=== PATIENT | female | born 1955 | race Caucasian/White ===

== ENCOUNTER 2017-11-28 13:00 | Day surgery (SDC) | payer OTHER ==
[~2017-11-28] VITALS: Ht 157.5 cm; Wt 72.8 kg
[~2017-11-28 13:00] MED LIST: AMLO5
[2017-11-28] MEDS ORDERED: PRAV20 (13:45)
== END 2017-11-28 15:20 | disposition home or self-care (01) ==
LOC: ORSCSDS 13:00
PROVIDERS: Internal Medicine Gastroenterology
PROC: 0DBK8ZX Excision of Ascending Colon, Via Natural or Artificial Opening Endoscopic, Diagnostic (ICD-10-PCS; principal; 2017-11-28 14:30)
DX: Z12.11 Encounter for screening for malignant neoplasm of colon (principal); K63.5 Polyp of colon; K64.4 Residual hemorrhoidal skin tags; K64.8 Other hemorrhoids; K57.30 Diverticulosis of large intestine without perforation or abscess without bleeding; Z86.010 Personal history of colon polyps; I12.9 Hypertensive chronic kidney disease with stage 1 through stage 4 chronic kidney disease, or unspecified chronic kidney disease; E78.5 Hyperlipidemia, unspecified; F17.210 Nicotine dependence, cigarettes, uncomplicated; Z79.899 Other long term (current) drug therapy
CPT/HCPCS: 88305; J2405; J7120

== ENCOUNTER 2018-01-13 18:27 | Emergency (ER) | payer OTHER ==
[~2018-01-13] VITALS: Ht 160 cm; Wt 65.8 kg
[~2018-01-13 18:27] MED LIST changes: +PRAV20
== END 2018-01-13 20:00 | disposition home or self-care (01) ==
LOC: ER 18:27
DX: J06.9 Acute upper respiratory infection, unspecified (principal); Z79.899 Other long term (current) drug therapy; I10 Essential (primary) hypertension; F17.200 Nicotine dependence, unspecified, uncomplicated
CPT/HCPCS: 87081; 87430; 99283

== ENCOUNTER → 2018-10-31 | Outpatient (CLI) | payer MEDICARE ==
[2018-10-31 09:05] LABS: BASOPHILS ABSOLUTE AUTO 0.06 K/mm3 (0.00-0.23); BASOPHILS PERCENT AUTO 1 % (0-2); EOSINOPHILS ABSOLUTE AUTO 0.14 K/mm3 (0.00-0.68); EOSINOPHILS PERCENT AUTO 1 % (0-6); IMMATURE GRAN ABSOLUTE AUTO 0.02 K/mm3 (0.00-0.10); IMMATURE GRAN PERCENT AUTO 0 % (0-1); LYMPHOCYTES ABSOLUTE AUTO 2.87 K/mm3 (0.84-5.20); LYMPHOCYTES PERCENT AUTO 26 % (21-46); MONOCYTES ABSOLUTE AUTO 0.74 K/mm3 (0.16-1.47); MONOCYTES PERCENT AUTO 7 % (4-13); Mean Corpuscular HGB 32.5 pg (26.0-34.0); Mean Corpuscular Volume 93 fL (80-100); Mean Platelet Volume 9.9 fL (9.1-12.4); NEUTROPHILS ABSOLUTE AUTO 7.43 K/mm3 (1.96-9.15); NEUTROPHILS PERCENT AUTO 66 % (41-73); Platelet Count 234 K/mm3 (150-400); RDW Coefficient Variation 12.7 % (11.7-14.2); RDW Standard Deviation 43.2 fL (35.1-46.3); Red Blood Cell Count 4.31 M/mm3 (3.80-5.20); White Blood Cell Count 11.26 K/mm3 (4.00-11.30)
== END | disposition home or self-care (01) ==
LOC: LAB EV 08:55 → LAB SHORT 08:55
PROVIDERS: General Practice
DX: M79.672 Pain in left foot (principal)
CPT/HCPCS: 84550; 85025; 85651

== ENCOUNTER → 2020-07-30 | Outpatient (CLI) | payer MEDICARE | END | disposition home or self-care (01) | LOC: LAB EV 18:26 → LAB SHORT 18:26 | DX: N39.0 Urinary tract infection, site not specified (principal) | CPT/HCPCS: 87077; 87086; 87186 ==

== ENCOUNTER → 2021-07-14 | Outpatient (CLI) | payer MEDICARE | END | disposition home or self-care (01) | LOC: LAB SHORT 09:58 | DX: N39.0 Urinary tract infection, site not specified (principal) | CPT/HCPCS: 87077; 87086; 87186 ==

== ENCOUNTER → 2022-06-05 | Outpatient (CLI) | payer OTHER ==
[~2022-06-05] MED LIST changes: +AMLODIPINE BESYL5 MG PO; +ASPI81CH PO; +CEPH500 PO; +LOSA50 PO; +PANT40 PO; +ROSUVASTATIN CA40 MG PO; +VISBIOME 112.51 EACH PO
== END | disposition home or self-care (01) ==
LOC: LAB SHORT 10:33 → LAB 10:33
DX: N39.0 Urinary tract infection, site not specified (principal)
CPT/HCPCS: 87077; 87086; 87186

== ENCOUNTER 2022-06-07 04:47 | Observation (INO) | payer OTHER ==
[~2022-06-07] VITALS: Ht 157.5 cm; Wt 68.0 kg
[~2022-06-07 04:47] MED LIST changes: -AMLODIPINE BESYL5 MG PO; -ASPI81CH PO; -CEPH500 PO; -LOSA50 PO; -PANT40 PO; -ROSUVASTATIN CA40 MG PO; -VISBIOME 112.51 EACH PO
[2022-06-07 05:13] LABS: BASOPHILS ABSOLUTE AUTO 0.13 K/mm3 (0.00-0.23); BASOPHILS PERCENT AUTO 1 % (0-2); EOSINOPHILS ABSOLUTE AUTO 0.05 K/mm3 (0.00-0.68); EOSINOPHILS PERCENT AUTO 0 % (0-6); Hematocrit 49.1 % (33.0-51.0); Hemoglobin 16.4 g/dL (11.5-16.0); IMMATURE GRAN ABSOLUTE AUTO 0.19 K/mm3 (0.00-0.10); IMMATURE GRAN PERCENT AUTO 1 % (0-1); LYMPHOCYTES ABSOLUTE AUTO 0.74 K/mm3 (0.84-5.20); LYMPHOCYTES PERCENT AUTO 3 % (21-46); MONOCYTES ABSOLUTE AUTO 1.86 K/mm3 (0.16-1.47); MONOCYTES PERCENT AUTO 8 % (4-13); Mean Corpuscular HGB 31.6 pg (26.0-34.0); Mean Corpuscular HGB Conc 33.4 g/dL (31.5-36.5); Mean Corpuscular Volume 95 fL (80-100); Mean Platelet Volume 10.3 fL (9.1-12.4); NEUTROPHILS ABSOLUTE AUTO 20.58 K/mm3 (1.96-9.15); NEUTROPHILS PERCENT AUTO 87 % (41-73); Platelet Count 270 K/mm3 (150-400); RDW Coefficient Variation 12.5 % (11.7-14.2); RDW Standard Deviation 43.8 fL (35.1-46.3); Red Blood Cell Count 5.19 M/mm3 (3.80-5.20); White Blood Cell Count 23.55 K/mm3 (4.00-11.30)
[2022-06-07 05:31] LABS: International Normalized Ratio 0.99; Prothrombin Time Results 10.4 Sec (9.7-11.5)
[2022-06-07 05:40] LABS: Albumin, Blood 4.2 g/dL (3.4-5.0); Bilirubin, Total 0.5 mg/dL (0.1-1.0); Bun/Creatinine Ratio 17.2 (12.0-20.0); Calcium, Blood 10.5 mg/dL (8.5-10.1); Creatinine, Blood 1.98 mg/dL (0.40-1.00); Globulin, Blood 4.3 g/dL (2.2-4.0); Total Protein, Blood 8.5 g/dL (6.4-8.2)
[2022-06-07] MEDS ORDERED: ROSUVASTATIN CA40 MG PO (06:51)
[2022-06-07] MEDS ORDERED: CEPH500 PO (06:51)
[2022-06-07] MEDS ORDERED: ASPI81CH PO (06:51)
[2022-06-07] MEDS ORDERED: LOSA50 PO (06:51)
[2022-06-07] MEDS ORDERED: AMLODIPINE BESYL5 MG PO (06:51)
[2022-06-07 09:29] LABS: Source, Urine Clean Catch
[2022-06-07 09:40] LABS: Appearance, Urine Clear (Clear); Bilirubin, Urine Neg (Neg); Blood, Urine 4+ (Neg); Color, Urine Yellow (P-Yellow); Glucose Qualitative, Urine Neg (Neg); Ketones, Urine Neg (Neg); Leukocyte Esterase, Urine 1+ (Neg); Nitrite, Urine Neg (Neg); Protein, Urine 2+ (Neg); Urobilinogen, Urine NORM (Normal)
[2022-06-07 10:33] LABS: Bacteria Rare /hpf; Squamous Epithelial Cells Few /hpf (Few)
--- NOTE | 2022-06-07 18:27 | NUR ---
SHIFT SUMMARY PT CAME TO THE FLOOR AT 1700. SHE IS NO LONGER NASUEAUS, IN PAIN OR HAVING STOMACH CRAMPS, SHE IS VERY TIRED AND FEELS VERY DRY. SHE WAS ABLE TO PRODUCE A STOOL SAMPLE. SHE IS SLEEPING AND IS ASKING TO NOT BE DISTURBED. BED IN LOWEST POSITION, CALL LIGHT IN REACH. SHE IS INDEPENDENT UP TO THE BATHROOM
[2022-06-07 20:08] LABS: Anion Gap 7 mmol/L (6-16); Blood Urea Nitrogen 26 mg/dL (8-24); Bun/Creatinine Ratio 20.8 (12.0-20.0); CO2, Blood 24 mmol/L (21-32); Chloride, Blood 109 mmol/L (98-108); Creatinine, Blood 1.25 mg/dL (0.40-1.00); Glomerular Filtration Rate 47 (60-); Glucose, Blood 95 mg/dL (70-99); Phosphorus, Blood 3.3 mg/dL (2.5-4.9); Potassium, Blood 4.1 mmol/L (3.5-5.5); Sodium, Blood 140 mmol/L (136-145)
[2022-06-07 20:15] LABS: Calcium, Blood 8.4 mg/dL (8.5-10.1)
[2022-06-07 22:35] LABS: Stool Occult Blood Guaiac 1 Pos (Neg)
[2022-06-07 23:50] LABS: Adenovirus F 40/41 Not Detected (NOT DETECT); Astrovirus Not Detected (NOT DETECT); Campylobacter Sp Not Detected (NOT DETECT); Cryptosporidium Not Detected (NOT DETECT); Cyclospora Cayetanensis Not Detected (NOT DETECT); E. Coli O157 Not Detected (NOT DETECT); Entamoeba Histolytica Not Detected (NOT DETECT); Enteroaggregative E. coli-EAEC Not Detected (NOT DETECT); Enteropathogenic E. coli-EPEC Not Detected (NOT DETECT); Enterotoxigenic E. coli-ETEC Not Detected (NOT DETECT); Giardia Lamblia Not Detected (NOT DETECT); Norovirus GI/GII Not Detected (NOT DETECT); Plesiomonas Shigelloides Not Detected (NOT DETECT); Rotavirus A Not Detected (NOT DETECT); Salmonella Sp Not Detected (NOT DETECT); Sapovirus Not Detected (NOT DETECT); Shiga Toxin-prod E. coli-STEC Not Detected (NOT DETECT); Shigella/Enteroin E. coli-EIEC Not Detected (NOT DETECT); Vibrio Cholerae Not Detected (NOT DETECT); Vibrio Sp Not Detected (NOT DETECT); Yersinia Enterocolitica Not Detected (NOT DETECT)
[2022-06-08 05:07] LABS: BASOPHILS ABSOLUTE AUTO 0.02 K/mm3 (0.00-0.23); BASOPHILS PERCENT AUTO 0 % (0-2); EOSINOPHILS PERCENT AUTO 1 % (0-6); Hematocrit 35.7 % (33.0-51.0); Hemoglobin 11.8 g/dL (11.5-16.0); IMMATURE GRAN ABSOLUTE AUTO 0.05 K/mm3 (0.00-0.10); IMMATURE GRAN PERCENT AUTO 0 % (0-1); LYMPHOCYTES PERCENT AUTO 21 % (21-46); MONOCYTES ABSOLUTE AUTO 0.85 K/mm3 (0.16-1.47); MONOCYTES PERCENT AUTO 7 % (4-13); Mean Corpuscular HGB 31.3 pg (26.0-34.0); Mean Corpuscular HGB Conc 33.1 g/dL (31.5-36.5); Mean Corpuscular Volume 95 fL (80-100); NEUTROPHILS ABSOLUTE AUTO 8.74 K/mm3 (1.96-9.15); NEUTROPHILS PERCENT AUTO 71 % (41-73); Platelet Count 181 K/mm3 (150-400); RDW Coefficient Variation 12.8 % (11.7-14.2); RDW Standard Deviation 44.5 fL (35.1-46.3); Red Blood Cell Count 3.77 M/mm3 (3.80-5.20); White Blood Cell Count 12.36 K/mm3 (4.00-11.30)
[2022-06-08 05:35] LABS: Albumin, Blood 2.8 g/dL (3.4-5.0); Anion Gap 7 mmol/L (6-16); Blood Urea Nitrogen 23 mg/dL (8-24); Bun/Creatinine Ratio 18.9 (12.0-20.0); CO2, Blood 24 mmol/L (21-32); Chloride, Blood 111 mmol/L (98-108); Creatinine, Blood 1.22 mg/dL (0.40-1.00); Glomerular Filtration Rate 48 (60-); Glucose, Blood 99 mg/dL (70-99); Phosphorus, Blood 2.7 mg/dL (2.5-4.9); Potassium, Blood 3.7 mmol/L (3.5-5.5); Sodium, Blood 142 mmol/L (136-145)
--- NOTE | 2022-06-08 06:09 | NUR ---
SHIFT SUMMARY PATIENT ALERT AND ORIENTED. HAD NO COMPLAINTS OF PAIN OR SHORTNESS OF BREATH. NO ACUTE ISSUES NOTED OVERNIGHT. CALL LIGHT WITHIN REACH. REPORT GIVEN TO ONCOMING RN.
[2022-06-08] MEDS ORDERED: PANT40 PO (12:21)
[2022-06-08] MEDS ORDERED: VISBIOME 112.51 EACH PO (12:21)
--- NOTE | 2022-06-08 13:56 | NUR ---
PT DISCHARGED 1240 WITH ALL PAPERWORK REVIEWED AND EDUCATIONAL MATERIAL SENT. PT COLLECTED BELONGINGS AND WAS ESCORTED OUT VIA WHEEL CHAIR BY AID. PT HAS DENIED ANY PAIN TODAY AND WAS INDEPENDENT IN ROOM. TOLERATED REGULAR DIET WELL NO DISTRESS NOTED.
== END 2022-06-08 13:41 | disposition home or self-care (01) ==
LOC: ER 04:47 → MEDS 04:48 → ER 10:15 → ERHOLD 10:15 → MEDS 16:59
PROVIDERS: Emergency Medicine; ADMIT Family Medicine
DX: K52.9 Noninfective gastroenteritis and colitis, unspecified (principal); R11.2 Nausea with vomiting, unspecified; E87.2 Acidosis; E73.9 Lactose intolerance, unspecified; N17.9 Acute kidney failure, unspecified; I10 Essential (primary) hypertension; E78.5 Hyperlipidemia, unspecified; F17.210 Nicotine dependence, cigarettes, uncomplicated; Z66 Do not resuscitate; Z88.2 Allergy status to sulfonamides; Z79.82 Long term (current) use of aspirin; Z79.899 Other long term (current) drug therapy
CPT/HCPCS: 36415; 74177; 80053; 80069; 81001; 82272; 83605; 83735; 84484; 85018; 85025; 85610; 85730; 86850; 86900; 86901; 87015; 87045; 87046; 87086; 87205; 87507; 87899; 93005; 93010; 96374-59; 96375; 99285-25; A9270; C9113; G0378; J0696; J2405; J7030; J7120; Q9967

== ENCOUNTER 2022-11-17 07:30 | Day surgery (SDC) | payer OTHER ==
[~2022-11-17] VITALS: Ht 154.9 cm; Wt 67.0 kg
[~2022-11-17 07:30] MED LIST changes: +AMLODIPINE BESYL5 MG PO; +ASPI81CH PO; +CEPH500 PO; +IMODIUM A-D2 M1 PO; +LOSA50 PO; +PANT40 PO; +ROSUVASTATIN CA40 MG PO; +VISBIOME 112.51 EACH PO
[2022-11-17] MEDS ORDERED: VITAMIN D325 MC3 (08:19)
== END 2022-11-17 10:08 | disposition home or self-care (01) ==
LOC: ORSCSDS 07:30
PROVIDERS: Internal Medicine Gastroenterology
PROC: 0DBE8ZX Excision of Large Intestine, Via Natural or Artificial Opening Endoscopic, Diagnostic (ICD-10-PCS; principal; 2022-11-17 08:45)
DX: R19.7 Diarrhea, unspecified (principal); Z86.010 Personal history of colon polyps; K64.4 Residual hemorrhoidal skin tags; K57.30 Diverticulosis of large intestine without perforation or abscess without bleeding; E78.5 Hyperlipidemia, unspecified; I12.9 Hypertensive chronic kidney disease with stage 1 through stage 4 chronic kidney disease, or unspecified chronic kidney disease; N18.9 Chronic kidney disease, unspecified; F17.210 Nicotine dependence, cigarettes, uncomplicated; Z79.899 Other long term (current) drug therapy
CPT/HCPCS: 88305; J2405; J2704; J7120

== ENCOUNTER 2023-10-26 14:06 | Emergency (ER) | payer OTHER ==
[~2023-10-26] VITALS: Ht 157.5 cm; Wt 68.0 kg
[~2023-10-26 14:06] MED LIST changes: +VITAMIN D325 MC3
[2023-10-26 14:33] LABS: Hematocrit 45.7 % (33.0-51.0); Hemoglobin 15.5 g/dL (11.5-16.0); Mean Corpuscular HGB Conc 33.9 g/dL (31.5-36.5); Mean Corpuscular Volume 94 fL (80-100); Mean Platelet Volume 9.6 fL (9.1-12.4); Platelet Count 235 K/mm3 (150-400); RDW Coefficient Variation 12.9 % (11.7-14.2); RDW Standard Deviation 44.2 fL (35.1-46.3); Red Blood Cell Count 4.84 M/mm3 (3.80-5.20); White Blood Cell Count 25.07 K/mm3 (4.00-11.30)
[2023-10-26 14:43] LABS: Bilirubin, Total 0.3 mg/dL (0.1-1.0); Bun/Creatinine Ratio 12.8 (12.0-20.0); Calcium, Blood 10.1 mg/dL (8.5-10.1); Creatinine, Blood 1.56 mg/dL (0.40-1.00); Globulin, Blood 3.9 g/dL (2.2-4.0); Potassium, Blood 3.6 mmol/L (3.5-5.5); Total Protein, Blood 7.9 g/dL (6.4-8.2)
[2023-10-26 15:00] LABS: BAND PERCENT MAN 2 % (0-8); BASOPHILS PERCENT MAN 0 % (0-2); EOSINOPHILS ABSOLUTE MAN 0.25 K/mm3 (0.00-0.68); EOSINOPHILS PERCENT MAN 1 % (0-6); LYMPHOCYTES PERCENT MAN 4 % (21-46); MONOCYTES PERCENT MAN 6 % (4-13); NEUTROPHILS ABSOLUTE MAN 22.31 K/mm3 (1.96-9.15); SEG NEUTROPHILS PERCENT MAN 87 % (41-73); TOTAL CELLS COUNTED 100
[2023-10-26] MEDS ORDERED: ONDA4ODT MM (15:56)
[2023-10-26 16:15] VITALS: BP 123/62
== END 2023-10-26 16:43 | disposition home or self-care (01) ==
LOC: ER 14:06
PROVIDERS: Emergency Medicine
DX: A05.9 Bacterial foodborne intoxication, unspecified (principal); F17.210 Nicotine dependence, cigarettes, uncomplicated; I10 Essential (primary) hypertension; Z79.899 Other long term (current) drug therapy; Z88.2 Allergy status to sulfonamides
CPT/HCPCS: 80053; 83690; 85025; 96360; 99284-25; J7030